=== PATIENT | female | born 2000 | race Asian ===

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

== ENCOUNTER 2020-02-03 03:39 | Outpatient (CLI) | payer MEDICAID, SELFPAY ==
--- NOTE | 2020-02-03 08:00 | DI.US_ITS ---
EXAM: US OB DHARA WEIGHT CLINICAL HISTORY: + syphilis in 1st trimester,z34.90 TECHNIQUE: Ultrasound performed using standard protocol. COMPARISON: US US OB DHARA WEIGHT from 12/27/2019 FINDINGS: Ob ultrasound was performed utilizing 3rd trimester protocol. biometry is consistent with gest ational age of 36 weeks 0 days and an EDC of March 02 2020. The estimated weight is 2838 grams which is at the 29th percentile for predicted gestational ag e. Placenta is anterior with no placenta previa. There is visually a normal quantity of amniotic fluid and the DHARA is 16. Fetus is in cephalic presentation. heart rate is 139 BPM. IMPRESSION: DATA REPOSITORY:
== END 2020-02-03 03:59 ==
PROVIDERS: PCP Physician Assistant; Visit Provider Advanced Practice Midwife
DX: Z34.93 Encounter for supervision of normal pregnancy, unspecified, third trimester (principal)
CPT/HCPCS: 76816

== ENCOUNTER 2020-02-03 14:11 | Outpatient (CLI) | payer MEDICAID, SELFPAY ==
[2020-02-03 15:55] LABS: *AMPHETAMINES SCREEN URINE Negative (Negative); *BARBITURATES SCREEN URINE Negative (Negative); *BENZODIAZEPINES SCREEN URINE Negative (Negative); Cannabinoids THC Negative (Negative); Cocaine Screen,Urine Negative (Negative); METHADONE URINE SCREEN Negative (Negative); OPIATES URINE SCREEN Negative (Negative)
[2020-02-03 16:04] LABS: Tricyclic Antidepressants Negative (Negative)
[2020-02-04 10:32] LABS: Syphilis Serology (RPR) Positive (Negative)
[2020-02-07 14:51] LABS: Syphilis Total Ab w/Reflex Reactive (Nonreactive)
[2020-02-07 14:53] LABS: RPR Screen w/Reflex Reactive (Nonreactive)
[2020-02-08 12:24] LABS: Buprenorphine Negative
== END 2020-02-03 14:31 ==
PROVIDERS: PCP Physician Assistant; Visit Provider Advanced Practice Midwife
DX: O98.113 Syphilis complicating pregnancy, third trimester (principal); Z36.85 Encounter for antenatal screening for Streptococcus B; Z3A.36 36 weeks gestation of pregnancy
CPT/HCPCS: 0064U; 36415; 76816; 80307; 86593; 86780; 86592; 87081

== ENCOUNTER 2020-02-17 01:18 | Inpatient (IN) | payer MEDICAID, SELFPAY ==
[2020-02-17] VITALS (71 sets, daily range): BP systolic 112–141; BP diastolic 55–106; PULSE 0–92; RESP 18; TEMP 36.6–37.7; O2SAT 96–100
--- NOTE | 2020-02-17 01:59 | W.PM.OBHPL1 ---
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 LATOYA Calculator Estimated Delivery Date Method Current WG Current Estimate 02/23/20 LMP (Certain) 39w 1d Other Estimates 02/24/20 Ultrasound #1 39w 0d History of Present Expected Delivery Route/Plan - CNM FOB/boyfriend - Chan Pate (his first child) BB yes to circ [place] GBS negative Specific Issues/Plan 1. Pt and FOB treated for primary Syphilis and Chlamydia 07/12/19: 1a. Pt vomited 1 gm azythromycin dose, will retreat: Rx sent to pharmacy 07/20 1b. delay WILLIAM for CT until mid-August. Dirty urine sent 09/02/19=neg, still neg at 29 wks 1c. serial syphillis testing: once negative then repeat @ 28-32 wks and at delivery (per CDC) - From UpToDate: expect 4-fold decrease in titer 6 months after Rx'ed - 1:4 by end of December - Syph AB Scr: 10/29/19 (23 wks) positive, RPR titer 1:8, down from 1:16 - RPR of : 1:8 thus 2nd dose of PCN 2.4 mmu given 12/08 [place]. [place] - [facility] level 2 sono & MFM consult after 20 wks: sono is nml, - MFM advises interval growth scan at 32 wks, consult notes scanned into EMR 1D. 02/03/20: RPR = 1:4 AL 2. Nausea - treated with reglan QID - switched to zofran due to fatigue. 3. History of depression/anxiety - no medications currently 4. Enlarged thyroid - TSH 08/05 = 0.78 5. [place] test result low prob x3, male 6. CF carrier screen negative 7. Constipation - Colace and fiber supplements recommended. Review of Systems All systems reviewed & are unremarkable except as noted in HPI and below Constitutional Constitutional: Reports as per HPI Cardiovascular Cardiovascular: Reports system reviewed and no additional complaints, except as documented Respiratory Respiratory: Reports system reviewed and no additional complaints, except as documented Gastrointestinal Gastrointestinal: Reports system reviewed and no additional complaints, except as documented Genitourinary Genitourinary: Reports system reviewed and no additional complaints, except as documented Musculoskeletal Musculoskeletal: Reports system reviewed and no additional complaints, except as documented Integumentary/Breasts Skin/Breast: Reports system reviewed and no additional complaints, except as documented Neurologic Neurologic: Reports system reviewed and no additional complaints, except as documented Psychiatric Psychiatric: Reports system reviewed and no additional complaints, except as documented PFSH Medical History Chlamydia infection affecting in first trimester Depression Surgical History Hx of tonsillectomy 2018 Family History Mother Depression Maternal Grandmother Bipolar 1 disorder Alcohol abuse Substance abuse Maternal Uncle Bipolar 1 disorder Alcohol abuse Social History Smoking risk assessment performed?: No Substance use type: former substance user and marijuana Female Reproductive History Menstrual control method: none History History 1 Para 0 Hx # Term Pregnancies 0 Multiple births 0 Hx # Pregnancies 0 Ectopic pregnancies 0 AB induced 0 Hx Number of Living Children 0 AB spontaneous 0 Meds Home Medications and Allergies Home Medications Medication Instructions Recorded Confirmed Type prenat.vits,galina,[id number] 1 tab PO DAILY #90 tab 07/12/19 02/09/20 Rx ondansetron HCl 4 mg tablet 4 mg PO Q8H PRN tab 10/29/19 02/09/20 History ferrous sulfate 325 mg (65 mg 325 mg PO DAILY #60 tab 02/03/20 02/09/20 Rx iron) tablet Allergies Allergy/AdvReac Type Severity Reaction Status Date / Time No Known Allergies Allergy Verified 02/09/20 10:54 Exam Physical Exam Vital signs: Pulse BP 62 138/71 02/17/20 01:45 02/17/20 01:45 Vital Signs Reviewed: Yes Constitutional Constitutional: mild distress, average body habitus and cooperative Detailed Labor and Delivery Exam Dilation: 3 Effacement (%): 100 station: -1 Cervix position: mid Consistency: soft Amniotic Membrane Status: Ruptured Rupture Method: Spontaneous Amniotic Fluid: Clear Pooling: Positive Nitrazine: Positive Fer[place]: Present Monitor Mode: External Contraction Frequency(min): irregular Contraction Duration(sec): 60 Contraction Intensity: Mild/Moderate Fetus A Heart Rate Baseline: 135 Monitor Accelerations: 15 X 15 Monitor Decelerations: None Variability: Moderate (6-25 BPM) Presentation: Vertex Categories: Category I Est. Weight: 7 lb 2.64 oz Est. Weight: 3250 gms Date of Membrane Rupture: 02/16/20 Time of Membrane Rupture: 22:36 HEENT Exam HEENT Exam: Normal Neck Exam Neck Exam: Normal Chest/Brest/Axilla Exam Chest Exam: Normal Breast Exam Breast Exam: Normal Respiratory Exam Respiratory Exam: Normal Cardiovascular Exam Cardiovascular Exam: Normal Abdominal Exam Abdominal Exam: Normal (Gravid) Rectal Exam Rectal Exam: Not Done Exam Exam: Normal Extremities Exam Extremities Exam: Normal Back/Spine/Pelvis Exam Back Exam: Normal Pelvis Adequate: Yes Skin Exam Skin Exam: Normal Neurological Exam Neurological Exam: Normal Psychiatric Exam Psychiatric Exam: Normal Results Results Group Beta Strep: Negative Blood Type: O+ Rubella Status: Immune Varicella Immunity: Immune Lab Results: RPR has decreased to 1:4 titer at 37 wks Risk Assessment Risk for Shoulder Dystocia Historical/Initial OB: NEGATIVE FOR: Pelvic Abnormality, Pre- BMI>30, Previous Shoulder Dystocia or Previous Macrosomia 40 Weeks: NEGATIVE FOR: EFW> 4500 gms, Maternal Weight Gain >40lb or Post Dates Increased Risk?: No Delivery Plan @ 36wks: spont labor and Risk for Pre-Eclampsia Daily Dose ASA Indicated: No Yes, if one or more: NEGATIVE FOR: Hx Pre-E/Gest HTN, Chronic HTN, Multiple Gestation, Pre-gestational DM, Renal Disease, Systemic Lupus or APA Syndrome Yes, if 2 or more: POSITIVE FOR: Nulliparity; NEGATIVE FOR: Age>= 35 yrs, >10yr btwn pregnancies, BMI>30, ethinicty, Mother/Sister w/ Pre-E or Previous IUGR Risk for Post- Hemorrhage Initial: NEGATIVE FOR: Multiple Gestation, Previous PPH, Known Clotting Deficiency, Grand Multiparity or Anticoagulation At Risk?: No Risks Reviewed Risks Reviewed Upon Admission: Yes
[2020-02-17 02:30] LABS: HGB 11.9 g/dL (11.2-15.7); MCH 28.6 pg (27.0-33.0); MCHC 33.1 % (32.0-36.0); MCV 86.5 fL (80-95); MPV 9.5 fL (8.0-11.0); Platelet Count 321 10^3/uL (130-400); RBC 4.16 10^6/uL (3.93-5.22); RDW 12.4 % (11.7-14.6); RDW-SD 39.1 fL; WBC 12.57 10^3/uL (4.4-10.8)
[2020-02-17] MEDS: Lactated Ringers 500 ML IV (03:00)
[2020-02-17] MEDS: Bupivacaine 0.25% Pres-Free 10 ML VIAL EP (04:10)
[2020-02-17] MEDS: FentaNYL/ROPIvacaine 2 mcg/ml and 0.1% 200 ML CADD Cassette EP (04:11)
[2020-02-17] MEDS: fentaNYL 100 MCG/2 ML VIAL EP (04:11)
--- NOTE | 2020-02-17 06:38 | W.PM.OBNL1 ---
Date of service: 02/17/20 Time of Service: 06:38 Pelvic Exam Comments: SVE deferred as pt is sleeping Assessment and Plan Assessment and plan (1) Spontaneous rupture of amniotic membranes: Status: Acute Assessment and plan: A: primip, active labor after SROM, epidural anesthesia P: Anticipate today Objective Abnormal lab results 02/17/20 Range/Units 02:20 WBC 12.57 H (4.4-10.8) 10^3/uL Temp Pulse Resp BP Pulse Ox 98.2 F 56 L 18 133/60 100 02/17/20 04:21 02/17/20 06:09 02/17/20 02:38 02/17/20 06:09 02/17/20 04:21 Laboratory Results WBC 12.57 10^3/uL (4.4-10.8) H 02/17/20 02:20 RBC 4.16 10^6/uL (3.93-5.22) 02/17/20 02:20 Hgb 11.9 g/dL (11.2-15.7) 02/17/20 02:20 Hct 36.0 % (36.0-46.0) 02/17/20 02:20 MCV 86.5 fL (80-95) 02/17/20 02:20 MCH 28.6 pg (27.0-33.0) 02/17/20 02:20 MCHC 33.1 % (32.0-36.0) 02/17/20 02:20 RDW 12.4 % (11.7-14.6) 02/17/20 02:20 Plt Count 321 10^3/uL (130-400) 02/17/20 02:20 MPV 9.5 fL (8.0-11.0) 02/17/20 02:20 Patient ABO/Rh O Positive 02/17/20 02:20 Antibody Screen Negative 02/17/20 02:20 Vital Signs Reviewed: Yes Objective Narrative Objective Narrative: Pt requested epidural anesthesia by 0245, IV started and SCALE RECLAMATION TENDER placed epidural @ 0400 EFM tracing has been category 1 overall, One period of subtle lates after epidural induction, maternal position changed and lates resolved Normotensive, afebrile, comfortable at this time, sleeping Subjective Interval history since last seen: epidural covered well, has slept on/off, notes increasing sense of pelvic pressure Results Abnormal Lab Findings: Abnormal Labs 02/17/20 02:20 WBC 12.57 H
--- NOTE | 2020-02-17 07:18 | W.PM.OBNL1 ---
Date of service: 02/17/20 Time of Service: 07:18 Pelvic Exam Dilation: 10 Effacement (%): 100 station: +2 Position: LOT Vaginal Exam Presentation: Cephalic Contractions Monitor Mode: External Contraction Frequency(min): every 2-3 minutes Intensity: Moderate/Strong Fetus A Monitor: External (US) Heart Rate Baseline: 130 Presentation: Cephalic Variability: Moderate (6-25 BPM) Categories: Category I Accelerations: Present Decelerations: None Amniotic Membrane Status: Ruptured Assessment and Plan Assessment and plan (1) Spontaneous rupture of amniotic membranes: Status: Acute Assessment and plan: A: 2nd stage labor, dense epidural P: Will hold 2nd stage huddle and begin coached maternal pushing efforts Anticipate Objective fully dilated, +2, epidural is fairly dense pt assisted to bedside commode to empty bladder Vital Signs Reviewed: Yes
[2020-02-17] MEDS: Lactated Ringers 500 ML 125 ML IV (07:35)
[2020-02-17] MEDS: Oxytocin/Normal Saline 30 UNITS/500 ML BAG 95 UNITS IV (09:52)
[2020-02-17] MEDS: Acetaminophen 325 MG TAB 650 MG PO (11:38)
--- NOTE | 2020-02-17 12:11 | W.OBDELIVERY ---
Date of service: 02/17/20 Time of Service: 12:12 OB Labor/ Delivery Information Baby A Delivery Delivery Method: Spontaneaous Presentation: Cephalic Cephalic Position: Vertex Vertex Position: Left Occipital Posterior Breech Position: N/A Cord Description-Baby A: 3 Vessels Amniotic Fluid: Clear Estimated Blood Loss: 300 Delivery Outcome: Liveborn Infant Complications: left nuchal hand Transferred: Remains with Mother Note: Pt rested well after epidural anesthesia was placed, woke up at 0700 and found to be fully dilated, coached pushing began. Excellent maternal efforts resulted in of a vigorous male over intact perineum with left nuchal hand, to mother's arms immediately, pitocin infusion begun, cord ceased pulsating and clamped, cut by FOB. [place] placenta intact with 3VC, cord blood collected, 1 stitch of 4.0 vicryl placed to repair superficially torn hymenal remnant at introitus. Excellent bonding noted. Providers Nurse Garment Parts Cutter Hand: Bhavana Rutherford Nurse: Brittany Todd Nurse: Milo Lloyd Labor/Delivery Information Number of Babies in Womb: 1 Steroids Given: None Reason Steroids Not Administered: N/A Group Beta Strep: Negative Antibiotics Administered: No Rubella Status: Immune Blood Type: O+ Varicella Immunity: Immune Shoulder Dystocia: No Stages of Labor Onset of Labor Date: 02/16/20 Onset of Labor Time: 22:36 Complete Dilatation Date: 02/17/20 Complete Dilatation Time: 07:00 Labor - Stage 1 Duration: 24 hours and 0 minutes ROM Baby A: 02/16/20 ROM Baby A: 22:36 Delivery Date-Baby A: 02/17/20 Delivery Time-Baby A: 09:50 Labor Stage 2 Duration: 2 hours and 50 minutes Placenta Delivery Date-Baby A: 02/17/20 Placenta Delivery Time-Baby A: 10:01 Labor-Stage 3 Duration: 11 minutes Total Length of Labor-Baby A: 11 hours and 14 minutes Placenta Cultured: No Placenta Status: Delivered Baby A Gender: Male Gestational Status: Term (39-41.6 wks) Gestational Age in Weeks/Days: 39 Weeks and 1 Days weight: 6 lb 11.409 oz Weight Comment: 3045 gms Score-1 Minute Interval(Baby A) Heart Rate-1 minute: 100 BPM or Greater Respiratory Effort- 1 minute: Spontaneous/Strong Cry Muscle Tone-1 minute: Active Movement Reflex Response-1 minute: Prompt Response Color-1 minute: Bluish Hands or Feet Total Score-1 minute: 9 Score-5 Minute Interval(Baby A) Heart Rate- 5 minute: 100 BPM or Greater Respiratory Effort-5 minute: Spontaneous/Strong Cry Muscle Tone-5 minute: Active Movement Reflex Response-5 minute: Prompt Response Color-5 minute: Bluish Hands or Feet Total Score- 5 minute: 9 Procedure Procedures: Cord Blood Collection
[2020-02-18 07:18] LABS: HCT 33.1 % (36.0-46.0); MCH 28.8 pg (27.0-33.0); MCHC 33.2 % (32.0-36.0); MCV 86.6 fL (80-95); MPV 9.6 fL (8.0-11.0); Platelet Count 277 10^3/uL (130-400); RBC 3.82 10^6/uL (3.93-5.22); RDW 12.5 % (11.7-14.6); RDW-SD 39.3 fL; WBC 14.18 10^3/uL (4.4-10.8)
[2020-02-18 08:20] VITALS: BP 109/64; PULSE 62; RESP 20; TEMP 36.5; O2SAT 100
[2020-02-18] MEDS: Acetaminophen 325 MG TAB 650 MG PO (08:32)
[2020-02-18] MEDS: Ibuprofen 600 MG TAB PO (08:33)
[2020-02-18 09:09] LABS: HIV-1/2 Ag & Ab Screen Negative (Negative)
--- NOTE | 2020-02-18 09:13 | OBPPV_ITS ---
Date of service: 02/18/20 Time of Service: 09:13 Assessment and Plan Assessment and plan (1) Routine follow-up: Status: Acute Assessment and plan: A: PPD#1, nml recovery P: Pt desires discharge today as it is [facility] nml this morning Pt caring for self and baby competently Declines circumcision for baby Plans Nexplanon insertion at 2 weeks Written instructions reviewed and given to pt. Subjective Subjective Patient comments: No complaints, Pain well controlled, Tolerating diet and Flatus present baby status: Doing well, Nursing well, Rooming in and Strong Bonding Observed [place] feeding status: Exclusively breast feeding Exam Physical Exam Vital signs: Temp Pulse Resp BP Pulse Ox 97.7 F 62 20 109/64 100 02/18/20 08:20 02/18/20 08:20 02/18/20 08:20 02/18/20 08:20 02/18/20 08:20 Vital Signs Reviewed: Yes Constitutional Constitutional: no acute distress and average body habitus HEENT Exam HEENT Exam: Normal Neck Exam Neck Exam: Normal Respiratory Exam Respiratory Exam: Normal Cardiovascular Exam Cardiovascular Exam: Normal Abdominal Exam Abdomen: Other (soft and nontender) Fundal Exam Fundus: Below Umbilicus and Firm Exam Perineum: Intact and Normal Extremities Exam Extremity Exam: Normal Back/Spine/Pelvis Exam Back Exam: Normal Skin Exam Skin Exam: Normal Neurological Exam Neurological Exam: Normal Psychiatric Exam Psychiatric Exam: Normal (happy, tired, satisfied with experience) Results Hemoglobin/Hematocrit: Hgb 11.0 g/dL (11.2-15.7) L 02/18/20 07:05 Hct 33.1 % (36.0-46.0) L 02/18/20 07:05
--- NOTE | 2020-02-18 09:29 | W.PM.OBDISCH ---
Date of service: 02/18/20 Time of Service: 09:29 DS: Diagnosis Discharge Diagnosis (1) Routine follow-up: Status: Acute (2) Term delivered: Status: Acute Discharge Plan Disposition Patient Disposition: HOME Condition: Good Discharge Details Reason For Visit: SROM Admit Date/Time: 02/17/20 01:52 Admit Provider: Bhavana Rutherford Attending Provider: Bhavana Rutherford Primary Care Provider: Gilbert Bhat Hospital Course Hospital Course: with epidural anesthesia, nml PP course, discharged at 24 hrs at pt request. Home Meds and New Rx's Prescriptions: Continued prenat.vits,galina,[id number]-awywd Tablet 1 tab PO DAILY Qty: 90 RF: 5 Discontinued ondansetron HCl [Zofran] 4 mg tablet 4 mg PO Q8H PRNRF: 0 ferrous sulfate [Feosol] 325 mg (65 mg iron) tablet 325 mg PO DAILY Qty: 60 RF: 1 Discharge Instructions Additional Instructions: Please call [facility] at [phone] on Friday to schedule your 2 week appt check and Nexplanon insertion, and your 6 wk appt with your student support services director. Call the student support services director quality control inspector with any questions or concerns. Stand Alone Forms: BC Instructions, NB Instructions, BC Post Vaginal Deliver Activity:: Activity as Tolerated Equipment/Supplies:: No Equipment Needed Diet:: Normal Diet Discharge Orders Discharge Orders: Discharge Order (Routine); Ordered 02/18/20 Ordered By: Bhavana Rutherford OB:DS Summary Summary Vaginal Delivery Method: Spontaneaous Episiotomy Description: None Laceration Description: Perineal Laceration Extension: N/A Contraception Discussed Contraception Discussed: Yes, [place] Infant Gender-Baby A: Male weight: 6 lb 11.409 oz Status at Discharge Functional status at discharge: independent ambulation Overall status at discharge: patient is progressing back to baseline Mental Status: mental status grossly normal Speech and Movement: speech and movement normal and speech clear Mood: congruent mood Affect: normal affect Exam Physical Exam Vital signs: Temp Pulse Resp BP Pulse Ox 97.7 F 62 20 109/64 100 02/18/20 08:20 02/18/20 08:20 02/18/20 08:20 02/18/20 08:20 02/18/20 08:20 Constitutional Constitutional: no acute distress and average body habitus HEENT Exam HEENT Exam: Normal Neck Exam Neck Exam: Normal Respiratory Exam Respiratory Exam: Normal Cardiovascular Exam Cardiovascular Exam: Normal Abdominal Exam Abdomen: Other (soft and nontender) Fundal Exam Fundus: Below Umbilicus and Firm Rectal Exam Rectal Exam: Not Done Exam Perineum: Intact and Normal Extremities Exam Extremity Exam: Normal Back/Spine/Pelvis Exam Back Exam: Normal Skin Exam Skin Exam: Normal Neurological Exam Neurological Exam: Normal Psychiatric Exam Psychiatric Exam: Normal (happy, tired, satisfied with experience) [facility] Medical History Chlamydia infection affecting in first trimester Depression Surgical History Hx of tonsillectomy 2018 Family History Mother Depression Maternal Grandmother Bipolar 1 disorder Alcohol abuse Substance abuse Maternal Uncle Bipolar 1 disorder Alcohol abuse Social History Smoking/Tobacco Use Status: Never Smoking risk assessment performed?: Yes Alcohol Intake: never Drug use: Current Sobriety Substance use type: former substance user and marijuana Female Reproductive History Menstrual control method: none History History 1 Para 0 Hx # Term Pregnancies 0 Multiple births 0 Hx # Pregnancies 0 Ectopic pregnancies 0 AB induced 0 Hx Number of Living Children 0 AB spontaneous 0 DS: Data Vitals/I&O Vitals and I&O: Vital Signs Temperature 97.7 F 02/18/20 08:20 Pulse 62 02/18/20 08:20 Pulse Rhythm Regular 02/18/20 08:20 Respiratory Rate 20 02/18/20 08:20 Respiratory Depth Normal 02/17/20 02:38 Blood Pressure 109/64 02/18/20 08:20 Blood Pressure Mean 79 02/18/20 08:20 Pulse Oximetry 100 02/18/20 08:20 Oxygen Delivery Method Room Air 02/17/20 07:00 Oxygen Flow Rate 0 02/17/20 07:00 Pain Level 6 02/18/20 08:33 Comment 02/17/20 11:32 Intake & Output 02/17/20 02/17/20 02/18/20 11:59 23:59 11:59 Intake Total 1100 / 1933 833 / 1933 Output Total 600 / 1999 Balance 500 / -67 -567 / -67 Weight 182 lb 0.035 oz Intake: IV 500 / 1333 833 / 1333 Oral 600 / 600 Output: Urine / 1999 Other: Urine Color Yellow [place] Data Completed and Pending Labs on day of discharge: Labs from last 24 hours 02/18/20 02/17/20 02/17/20 07:05 02:05 02:05 WBC 14.18 H RBC 3.82 L Hgb 11.0 L Hct 33.1 L MCV 86.6 MCH 28.8 MCHC 33.2 RDW 12.5 Plt Count 277 MPV 9.6 SARS-CoV-2 (PCR) Pending Cancelled [place] COVID-19 PCR Pending Cancelled Ref Test Perform Site Pending Cancelled
[2020-02-18 12:28] LABS: COVID-19 RT-PCR UVMMC Result Negative (Negative)
[2020-02-21 10:28] LABS: Syphilis Serology (RPR) Positive (Negative)
[2020-02-24 12:07] LABS: Syphilis Total Ab w/Reflex Reactive (Nonreactive)
[2020-02-24 12:10] LABS: RPR Screen w/Reflex Reactive (Nonreactive)
== END 2020-02-18 13:00 | disposition home or self-care (01) | DRG 807 ==
LOC: OBS 03:44
PROVIDERS: Admitting Provider Advanced Practice Midwife; PCP Physician Assistant; Visit Provider Advanced Practice Midwife
DX: O99.284 Endocrine, nutritional and metabolic diseases complicating childbirth; Z37.0 Single live birth; Z3A.39 39 weeks gestation of pregnancy; O70.0 First degree perineal laceration during delivery; E07.89 Other specified disorders of thyroid; O99.344 Other mental disorders complicating childbirth; F41.8 Other specified anxiety disorders; O99.62 Diseases of the digestive system complicating childbirth; K59.00 Constipation, unspecified; Z11.59 Encounter for screening for other viral diseases
CPT/HCPCS: 0064U; 36415; 85027; 86593; 86780; 86850; 86900; 86901; 87389; U0003; 86592; J3010

== ENCOUNTER 2020-05-27 11:09 | Emergency (ER) | payer MEDICAID, SELFPAY ==
[2020-05-27 11:17] VITALS: BP 126/92; PULSE 61; RESP 16; TEMP 36.1; O2SAT 100
--- NOTE | 2020-05-27 11:47 | ED.GENADUL_ITS ---
Discharge Plan Disposition Patient Disposition: HOME Condition: Improving Discharge Details Clinical Impression: Migraine Primary Care Provider: Gilbert Bhat ED Provider: Tan Black Home Meds and New Rx's Prescriptions: Continued prenat.vits,galina,[id number] Tablet 1 tab PO DAILY Qty: 90 RF: 5 atomoxetine [Strattera] 10 mg capsule 20 mg PO QAM Qty: 60 RF: 0 Nexplanon 68 mg implant 1 implant subdermal ONCE RF: 0 lamotrigine 25 mg tablet, chewable dispersible 25 mg PO .COMPLEX Qty: 100 RF: 0 atomoxetine [Strattera] 10 mg capsule 10 mg PO QAM Qty: 30 RF: 0 Discharge Instructions Instructions: Migraine Headache (ED) Additional Instructions: Home to rest today. Small, frequent sips of fluids so that you maintain good hydration. Continue your regularly prescribed medications. Return to the ER for acute illness or any other concern. Medical Decision Making 20-year-old female presents from home with complaint of nearly 1 week of per sistent headache. Associate with nausea and vomiting, photophobia, phonophobia. She has no fall or injury, no recent illness and denies stiff neck or fever. Most consistent with migraine type cephalgia. Patient IV access established, given parenteral fluids and medications, observed over approximately 2 hours time. Patient noted significant resolution of her headache and requested discharge to home. She is stable and improved, appropriate for outpatient management at this time. Additionally, the patient had concerns for displacement of her left arm Nexplanon implant. Appears intact both by palpation and informal bedside ultrasound. We will ask home health care respiratory therapist to arrange a follow for her in [facility] for recheck. HPI General Mode of arrival: ambulatory . Date/Time Provider Initiated Documentation: 05/27/20 11:17 . Limitations to Documentation: no limitations . Information obtained by: patient . History of Present Illness 20 year old F presents to the emergency department with the chief complaint of Headache 1 week, described as moderate, severe and similar to prior episodes, Quality is described as dull and constant, and is localized to the head. Patient reports no radiation. Patient started experiencing this day(s) and it has been constant. No relieving factors improve symptom(s), Other factors that worsen symptoms (Light and loud noises) . Patient notes loss of appetite and nausea/vomiting; denies fever/chills. Patient did receive the following treatments prior to arrival, other (Excedrin) Related Data Home Medications Medication Instructions Recorded Confirmed prenat.vits,galina,[id number] 1 tab PO DAILY #90 tab 07/12/19 03/31/20 etonogestrel 68 mg subdermal 1 implant SUBDERMAL ONCE 03/09/20 05/27/20 implant lamotrigine 25 mg chewable 25 mg PO .COMPLEX #100 tab 04/21/20 05/27/20 dispersible tablet atomoxetine 10 mg capsule 10 mg PO QAM #30 cap 04/22/20 05/27/20 atomoxetine 10 mg capsule 20 mg PO QAM #60 cap 05/02/20 05/02/20 Previous Rx's Medication Instructions Recorded prenat.vits,galina,[id number] 1 tab PO DAILY #90 tab 07/12/19 lamotrigine 25 mg chewable 25 mg PO .COMPLEX #100 tab 04/21/20 dispersible tablet atomoxetine 10 mg capsule 10 mg PO QAM #30 cap 04/22/20 atomoxetine 10 mg capsule 20 mg PO QAM #60 cap 05/02/20 Allergies Allergy/AdvReac Type Severity Reaction Status Date / Time No Known Allergies Allergy Verified 05/27/20 11:21 General Stated Complaint: Headache JADE: 4 Review of Systems Narrative: No fever, no stiff neck, no recent illness. Concern for Nexplanon feeling broken. PFSH Medical History Depression Hx of chlamydia infection 2020. Dx and treated during . WILLIAM negx2. Term delivered 02/17/20. . 39.1w EGA. No complications. Surgical History (Updated 05/07/20 @ 12:06 by Otilia Jay MD) Hx of tonsillectomy 2018 Family History Mother Depression Maternal Grandmother Bipolar 1 disorder Alcohol abuse Substance abuse Maternal Uncle Bipolar 1 disorder Alcohol abuse Social History Smoking/Tobacco Use Status: Never Smoking risk assessment performed?: Yes Alcohol Intake: never Drug use: Current Sobriety Substance use type: former substance user and marijuana Household members: children and other Details: S-'[facility]' Number of Children: 1 Do you feel safe at home: Yes Do you feel safe in your relationship?: Yes Female Reproductive History Menstrual control method: none History History 1 Para 1 Hx # Term Pregnancies 1 Multiple births 0 Hx # Pregnancies 0 Ectopic pregnancies 0 AB induced 0 Hx Number of Living Children 1 AB spontaneous 0 Past Pregnancies Del. Date GA/Weeks # Outcome Route Wgt Sex Labor Lgth Anesthes ia Location Prov Complic 02/17/20 39 No Successful vaginal 3044.739 g Male 11 hrs 14 min reg stephany Koroma, PITER Delivery Date: 02/17/20 Rx during for syphylis and Chlamydia. Name 'Giuseppe Pate'. O'Otilia De Jesus Exam Narrative Exam Narrative: GEN: awake, alert, oriented 3. Pleasant, well groomed, interactive. HEAD: Normocephalic, atraumatic ENT: Mucous membranes moist, oropharynx unremarkable-note of peers tongue, no swelling, External ear exam unremarkable EYES: PERRL, EOMI NECK: Full ROM, no ANABELLA, no menigismus CHEST/RESP: Nontender, clear to auscultation bilateral, no wheeze/rhonchi/rales CARDIOVASCULAR: RRR, no murmur, rub tutu. 2+ Rad pulse bilateral ABDOMEN: Soft, nontender, no mass. +Bowel sounds EXT: Full ROM, no edema, no rash Neuro: Grossly normal neurologic exam, conversant, interactive. Psych: Speech fluent, thoughts congruent, affect normal Course Vital Signs Vital signs: Vital Signs Temperature 36.1 C L 05/27/20 11:17 Pulse 61 05/27/20 11:17 Respiratory Rate 16 05/27/20 11:17 Blood Pressure 126/92 H 05/27/20 11:17 Pulse Oximetry 100 05/27/20 11:17 Temperature 36.1 C L 05/27/20 11:17 Temperature Source Skin 05/27/20 11:17 Pulse 61 05/27/20 11:17 Respiratory Rate 16 05/27/20 11:17 Respiratory Effort 05/27/20 11:21 Blood Pressure 126/92 H 05/27/20 11:17 Blood Pressure Position Sitting 05/27/20 11:17 Pulse Oximetry 100 05/27/20 11:17 Oxygen Delivery Method Room Air 05/27/20 11:17 Oxygen Flow Rate 0 05/27/20 11:17 Pain Level 7 05/27/20 11:24
[2020-05-27] MEDS: Normal Saline 1,000 ML 1000 ML IV (12:00)
[2020-05-27] MEDS: Ondansetron 4 MG/2 ML VIAL IVP (12:05)
[2020-05-27] MEDS: Ketorolac 30 MG/ML VIAL IVP (12:08)
[2020-05-27 12:10] LABS: Bilirubin Small (Negative); Blood Trace-intact (Negative); Clarity Clear (Clear); Glucose Negative (Negative); Ketones >=160 mg/dL (Negative); Leukocyte Esterase Trace (Negative); Nitrite Negative (Negative); Specific Gravity 1.025 (1.005-1.025)
[2020-05-27] MEDS: diphenhydrAMINE 50 MG/ML VIAL 25 MG IVP (12:15)
[2020-05-27] MEDS: Dexamethasone 10 MG/ML VIAL 8 MG IVP (12:17)
[2020-05-27] MEDS: Normal Saline Flush 10 ML SYR IVP (12:20)
[2020-05-27 12:28] LABS: Bacteria Few HPF (Negative); C & S Indicated? No/Sq. Contamination; Casts Negative LPF (Negative); Crystals Moderate Amorphous HPF (Negative); Epithelial Cells Many HPF (Negative); Mucus Moderate (Negative)
[2020-05-27 13:00] VITALS: BP 122/66; PULSE 60; RESP 16; TEMP 36.4; O2SAT 100
--- NOTE | 2020-05-27 13:07 | NUR.NOTE ---
Nursing Note: Referral faxed to [facility] to check implanted control within 1 - 2 weeks. Irene Lozano
== END 2020-05-27 13:04 | disposition home or self-care (01) ==
PROVIDERS: Emergency Provider Emergency Medicine; PCP Physician Assistant
DX: G43.909 Migraine, unspecified, not intractable, without status migrainosus (principal)
CPT/HCPCS: 81025; 96361; 96374; 96375; 99284; 81003; 81015; 99283; J1100; J1200; J1885; J2405

== ENCOUNTER 2020-10-13 11:24 | Emergency (ER) | payer MEDICAID, SELFPAY ==
[2020-10-13 11:36] VITALS: BP 135/61; PULSE 81; RESP 20; TEMP 36.6; O2SAT 99
[2020-10-13 11:46] LABS: Bilirubin Negative (Negative); Blood Small (Negative); Clarity Sl Cloudy (Clear); Glucose Negative (Negative); Ketones 80 mg/dL (Negative); Leukocyte Esterase Negative (Negative); Nitrite Negative (Negative); pH >= 9.0 (5-8)
--- NOTE | 2020-10-13 11:47 | ED.GENADUL_ITS ---
Discharge Plan Disposition Patient Disposition: HOME Condition: Stable Discharge Details Clinical Impression: Abdominal pain, Hypokalemia, Kidney stone on right side Primary Care Provider: Gilbert Bhat ED Provider: Tomas Mazariegos Home Meds and New Rx's Prescriptions: New ondansetron 4 mg tablet,disintegrating 4 mg PO Q8H PRN (Reason: nausea and vomiting) Qty: 30 RF: 0 tamsulosin [Flomax] 0.4 mg capsule 0.4 mg PO DAILY Qty: 14 RF: 0 oxycodone 5 mg tablet 5 mg PO Q6H PRNQty: 12 RF: 0 Continued prenat.vits,galina,nrp-[id number]-[id number] Tablet 1 tab PO DAILY Qty: 90 RF: 5 Nexplanon 68 mg implant 1 implant subdermal ONCE RF: 0 lamotrigine 150 mg tablet 150 mg PO BID Qty: 60 RF: 2 sertraline [Zoloft] 25 mg tablet 25 mg PO DAILY Qty: 30 RF: 2 dextroamphetamine-amphetamine [Adderall XR] 5 mg capsule,extended release 24hr 5 mg PO BID MDD 10mg Qty: 60 RF: 0 Discharge Instructions Instructions: Kidney Stones (ED), Hypokalemia (ED) Additional Instructions: Your blood work shows you have low potassium and your cat scan shows you have a kidney stone you should be contacted with an appointment with urology follow up with your primary care provider within 1 week and have your potassium rechecked take 1000mg tylenol and 600mg ibuprofen every 6 hours for pain as needed if you take the oxycodone do not drink alcohol or drive take the flomax once daily for 14 days or until you pass the stone if you feel more ill, have severe worsening pain, persistent vomit, or fevers return to the emergency department Medical Decision Making 20 yo female with hx of bipolar, migraines, who comes in with lower abdomen pain radiating to the right lower back starting after waking this morning. Also has had n/v per patient. Denies having pain like this yesterday nor in her past, no prior abdomen surgeries. Denies vaginal discharge or bleeding. Denies fevers. She has tenderness with palpation to the rlq and right lower back, no midline back pain and no saddle anesthesia, normal distal sensation and pulses. No other tenderness elsewhere on abdomen exam. Given location of pain concern for appendicitis vs kidney stone, will obtain labs and ct to further evaluate. labs show K of 2.9 and oral repletion ordered which she tolerated, she is feeling better though still has some pain, will try morphine ct shows 5mm distal uvj stone. She is stable and pain is controlled, no evidence of infection. Will d/c and have her f/u with urology, return precautions given Differential Diagnosis Differential Diagnosis: appendicitis, ovarian cyst, kidney stone Medical Records Medical records reviewed: Yes I reviewed the patient's medical records. Imaging Data Radiologic Study: Attestation: I personally reviewed and interpreted this imaging study as follows: Imaging: CT Scan Radiologist's impression: IMPRESSION: 1. 5 mm right UVJ stone causing moderate hydronephrosis. 2. Results of this exam have been verbally communicated with provider. Lab Data Lab results reviewed: Yes I reviewed the patient's lab results. HPI General Mode of arrival: ambulatory . Date/Time Provider Initiated Documentation: 10/13/20 11:25 . Limitations to Documentation: no limitations . Information obtained by: patient . History of Present Illness 20 year old F presents to the emergency department with the chief complaint of lower abdomen pain, described as moderate, Quality is described as stabbing and aching, and is localized to the abdomen. Patient reports radiation to back. Patient started experiencing this hour(s) (3) and it has been constant. No relieving factors improve symptom(s), No exacerbating factors reported . Patient notes nausea/vomiting. Patient did receive the following treatments prior to arrival, none Related Data Home Medications Medication Instructions Recorded Confirmed prenat.vits,galina,[id number] 1 tab PO DAILY #90 tab 07/12/19 03/31/20 etonogestrel 68 mg subdermal 1 implant SUBDERMAL ONCE 03/09/20 05/27/20 implant lamotrigine 150 mg tablet 150 mg PO BID #60 tab 08/15/20 sertraline 25 mg tablet 25 mg PO DAILY #30 tab 08/15/20 dextroamphetamine-amphetamine ER 5 5 mg PO BID #60 cap MDD 10mg 09/20/20 mg 24hr capsule,extend release ondansetron 4 mg PO Q8H PRN #30 tab 10/13/20 oxycodone 5 mg PO Q6H PRN #12 tab 10/13/20 tamsulosin [Flomax] 0.4 mg PO DAILY #14 cap 10/13/20 Previous Rx's Medication Instructions Recorded prenat.vits,galina,[id number]-urpa-nmagn 1 tab PO DAILY #90 tab 07/12/19 lamotrigine 150 mg tablet 150 mg PO BID #60 tab 08/15/20 sertraline 25 mg tablet 25 mg PO DAILY #30 tab 08/15/20 dextroamphetamine-amphetamine ER 5 5 mg PO BID #60 cap MDD 10mg 09/20/20 mg 24hr capsule,extend release ondansetron 4 mg PO Q8H PRN #30 tab 10/13/20 oxycodone 5 mg PO Q6H PRN #12 tab 10/13/20 tamsulosin [Flomax] 0.4 mg PO DAILY #14 cap 10/13/20 Allergies Allergy/AdvReac Type Severity Reaction Status Date / Time No Known Allergies Allergy Verified 10/13/20 11:41 General Stated Complaint: Abd Prob JADE: 3 Review of Systems All systems reviewed & are unremarkable except as noted in HPI and below Constitutional Constitutional: Denies chills, Denies fever(s) and Denies weakness Cardiovascular Cardiovascular: Denies chest pain and Denies dyspnea Respiratory Respiratory: Denies cough and Denies dyspnea Genitourinary Genitourinary: Denies dysuria Musculoskeletal Musculoskeletal: Denies joint swelling Neurologic Neurologic: Denies weakness [facility] Medical History (Updated 10/13/20 @ 13:23 by Tomas Mazariegos MD) Contraceptive surveillance Depression Hx of chlamydia infection 2019. Dx and treated during . WILLIAM negx2. Term delivered 02/17/20. . 39.1w EGA. No complications. Surgical History Hx of tonsillectomy 2018 Family History Mother Depression Maternal Grandmother Bipolar 1 disorder Alcohol abuse Substance abuse Maternal Uncle Bipolar 1 disorder Alcohol abuse Social History Smoking/Tobacco Use Status: Never Smoking risk assessment performed?: Yes Alcohol Intake: never Drug use: Daily Substance use type: former substance user and marijuana Household members: children and other Details: S-'[facility]' Number of Children: 1 Do you feel safe at home: Yes Do you feel safe in your relationship?: Yes Female Reproductive History Menstrual control method: none History History 1 Para 0 Hx # Term Pregnancies 0 Multiple births 0 Hx # Pregnancies 0 Ectopic pregnancies 0 AB induced 0 Hx Number of Living Children 0 AB spontaneous 0 Past Pregnancies Del. Date GA/Weeks # Outcome Route Wgt Sex Labor Lgth Anesthes ia Location Prov [facility] 02/17/20 39 No Successful vaginal 3044.739 g Male 11 hrs 14 min reg stephany Koroma, PITER Delivery Date: 02/17/20 Rx during for syphylis and Chlamydia. Name 'Giuseppe Pate'. Otilia Jay Exam Const General: no acute distress Orientation: alert HENMT Head: normal to inspection Ears: external ears normal General nose exam: external nose normal Mouth: moist mucous membranes Eyes General: appearance normal, both eyes and all related structures Neck Neck: normal visual inspection Resp Effort & Inspection: normal respiratory effort and able to speak in complete sentences Cardio Rate: regular rate GI Palpation: soft and tender Skin General skin exam: no rashes or lesions noted Neuro General: patient alert and patient oriented x3 Extrem General: normal to inspection Psych Mental Status: mental status grossly normal Course Vital Signs Vital signs: Vital Signs Temperature 36.6 C 10/13/20 11:36 Pulse 81 10/13/20 11:36 Respiratory Rate 20 10/13/20 11:36 Blood Pressure 135/61 10/13/20 11:36 Pulse Oximetry 99 10/13/20 11:36 Temperature 36.6 C 10/13/20 11:36 Temperature Source Skin 10/13/20 11:36 Pulse 81 10/13/20 11:36 Respiratory Rate 20 10/13/20 11:36 Respiratory Effort Non-Labored 10/13/20 11:42 Blood Pressure 135/61 10/13/20 11:36 Blood Pressure Position Sitting 10/13/20 11:36 Pulse Oximetry 99 10/13/20 11:36 Oxygen Delivery Method Room Air 10/13/20 11:36 Oxygen Flow Rate 0 10/13/20 11:36 Pain Level 10 10/13/20 11:36 Lab/Test Results Lab/Test Results: POC- Test(urine) Negative
[2020-10-13 11:54] LABS: Bacteria Moderate HPF (Negative); Crystals Moderate Amorphous HPF (Negative); Epithelial Cells Many HPF (Negative); Mucus Moderate (Negative); RBC >50 HPF (0-2)
[2020-10-13 11:55] LABS: C & S Indicated? No/Sq. Contamination
[2020-10-13] MEDS: Ketorolac 15 MG/ML VIAL IVP (12:07)
[2020-10-13] MEDS: Normal Saline 1,000 ML 1000 ML IV (12:07)
[2020-10-13] MEDS: Ondansetron 4 MG/2 ML VIAL IVP (12:07)
[2020-10-13 12:11] LABS: Abs Immature Grans 0.05 10^3/uL (0.0-0.06); Absolute Basophil Count 0.11 10^3/uL (0.0-0.2); Absolute Eosinophil Count 0.33 10^3/uL (0.0-0.7); Absolute Lymphocyte Count 1.95 10^3/uL (1.2-3.4); Absolute Neutrophil Count 11.17 10^3/uL (1.2-6.7); Basophils % 0.8; Eosinophils % 2.3; HCT 41.8 % (36.0-46.0); HGB 14.2 g/dL (11.2-15.7); Immature Grans % 0.4; Lymphocytes % 13.7; MCV 88.4 fL (80-95); MPV 9.4 fL (8.0-11.0); Monocytes % 4.2; Neutrophils % 78.6; Nucleated RBC 0 %; Platelet Count 376 10^3/uL (130-400); RBC 4.73 10^6/uL (3.93-5.22); RDW 11.9 % (11.7-14.6); RDW-SD 38.8 fL; WBC 14.21 10^3/uL (4.4-10.8)
[2020-10-13 12:26] LABS: ALT 12 U/L (14-59); AST 10 U/L (15-37); Albumin 4.8 g/dL (3.4-5.0); Alkaline Phosphatase 97 U/L (46-116); BUN 8 mg/dL (7-18); Bilirubin, Total 0.7 mg/dL (0.2-1.0); CREATININE 1.1 mg/dL (0.55-1.02); Calcium 9.8 mg/dL (8.5-10.1); Chloride 105 mmol/L (98-107); Glucose 110 mg/dL (74-106); Lipase 54 U/L (73-393); Magnesium 1.7 mg/dL (1.8-2.4); Sodium 143 mmol/L (136-145); Total Protein 8.4 g/dL (6.4-8.2)
[2020-10-13 12:28] LABS: Potassium 2.9 mmol/L (3.5-5.1)
--- NOTE | 2020-10-13 12:41 | DI.CT_ITS ---
Exam(s) CT ABDOMEN PELVIS W EXAM: CT ABDOMEN PELVIS W CLINICAL HISTORY: lower abdomen pain, right sided TECHNIQUE: Imaging Protocol: Axial computed tomography images with coronal and sagittal reformatted images were created and reviewed CONTRAST MATERIAL: Intravenous: Omnipaque 350 Contrast volume:84 mL Oral: No COMPARISON: No exams were available for comparison FINDINGS: ABDOMEN: Lung Bases: Normal where visualized. Liver: Normal density. No measurable mass. Portal, Superior Mesenteric, and Splenic Veins: Unremarkable. Gallbladder and Biliary Tract: No radiodense calculus or dilation. Pancreas: Normal density, no abnormal calcifications or inflammatory process. Spleen: Normal. Adrenals: No masses seen. Kidneys: Normal size, contour and axis. There is a 5 mm right UVJ stone causing moderate hydronephros is. There is a 3 mm nonobstructing stone in the lower pole of the right kidney. No masses seen. Abdominal Aorta: Abdominal portion non-dilated. Bowel: No obstruction or bowel wall thickening. No evidence of appendicitis. Peritoneal Cavity: No ascites, collection or mesenteric inflammatory response. No free air. Lymph Nodes: Within normal limits. Bones: Within normal limits for the patient's age. Soft Tissues: Unremarkable. PELVIS: Bladder: Evaluation of the urinary bladder is limited due to decreased distension. Reproductive Organs: Unremarkable as visualized. Lymph Nodes: Within normal limits. Bones: Within normal limits for the patient's age. IMPRESSION: 1. 5 mm right UVJ stone causing moderate hydronephrosis. 2. Results of this exam have been verbally communicated with provider. RADIATION DOSE DELIVERED: 575.89mGy.cm Total DLP DATA REPOSITORY: All CT scans at this facility are submitted to the National Radiology Data Registry (NRDR) Dose Index Registry (DIR) with the [employer] ([employer]). RADIATION OPTIMIZATION: All CT scans at this facility use at least one of these dose optimization te chniques: automated exposure control; mA and/or kV adjustment per patient size (includes targeted exa ms where dose is matched to clinical indication); or iterative reconstruction.
[2020-10-13] MEDS: Omnipaque 350 MG/ML 100 ML BTL 84 ML IJ (12:46)
[2020-10-13 13:16] VITALS: BP 124/72; PULSE 79; RESP 18; O2SAT 100
[2020-10-13] MEDS: Potassium Chloride 20 MEQ TABCR 40 MEQ PO (13:16)
[2020-10-13] MEDS: MORPHine 4 MG/ML SYR IVP (13:32)
--- NOTE | 2020-10-13 18:26 | NUR.NOTE ---
Nursing Note: Referral was given to Care management for Urology follow up
== END 2020-10-13 14:25 | disposition home or self-care (01) ==
PROVIDERS: Emergency Provider Emergency Medicine; PCP Physician Assistant
DX: E87.6 Hypokalemia (principal); N20.0 Calculus of kidney; R10.30 Lower abdominal pain, unspecified
CPT/HCPCS: 36415; 80053; 81025; 83690; 96361; 96374; 96375; 99285; 74177; 81003; 81015; 83735; 85025; 99284; J1885; J2270; J2405; J3490